=== PATIENT | female | born 1960 ===

== ENCOUNTER → 2018-05-06 | Outpatient (REF) ==
--- NOTE | 2018-05-06 15:14 | Diagnostic Imaging Report ---
INDICATION: Employment physical. Frontal chest obtained at 3:26 p.m. FINDINGS: Heart and mediastinal silhouette are normal in appearance. The lungs are clear. There is no pneumothorax or pleural fluid. IMPRESSION: Negative chest. Dictated by: Dictated on workstation # [id number]
== END | disposition home or self-care (01) ==
LOC: RAD 14:17
PROVIDERS: ATTEND Nurse Practitioner Family
CPT/HCPCS: 71045